=== PATIENT | female | born 1995 | race Caucasian/White ===

== ENCOUNTER 2019-04-24 05:37 | Emergency (ER) | payer OTHER ==
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
[2019-04-24 06:42] VITALS: BP 137/82; PULSE 90
== END 2019-04-24 06:33 | disposition home or self-care (01) ==
LOC: FB.ED 05:37
DX: T24.201A Burn of second degree of unspecified site of right lower limb, except ankle and foot, initial encounter (principal); T31.0 Burns involving less than 10% of body surface; X11.8XXA Contact with other hot tap-water, initial encounter
CPT/HCPCS: 99000; 99282